=== PATIENT | male | born 1965 | race Caucasian/White ===

== ENCOUNTER 2018-06-22 15:56 | Emergency (ER) | payer BC, OTHER ==
[~2018-06-22] VITALS: Ht 190.5 cm; Wt 94.3 kg
[2018-06-22] MEDS ORDERED: IBUPROFEN 800 MG TABLET PO ONE (16:15)
[2018-06-22] MEDS ORDERED: IBUPROFEN 800 MG TABLET ONE (16:28)
--- NOTE | 2018-06-22 16:55 | NUR ---
MSE COMPLETED, MEDS ADMIN, SUGAR TONG PLACED TO RT LOWER ARM, PT THEN D/C'D HOME, ACI/RFX X1 GIVEN. PT AMBULATED W/O DIFF TOOK ALL BELONGINGS.
[2018-06-22 17:08] VITALS: BP 130/72
== END 2018-06-22 16:55 | disposition home or self-care (01) ==
LOC: ER 15:59
DX: S52.501A Unspecified fracture of the lower end of right radius, initial encounter for closed fracture (principal); J45.909 Unspecified asthma, uncomplicated; W18.30XA Fall on same level, unspecified, initial encounter; Y93.67 Activity, basketball; Y92.89 Other specified places as the place of occurrence of the external cause; Y99.8 Other external cause status
CPT/HCPCS: 73110; 73130; A4663